=== PATIENT | male | born 1995 | race Hispanic/Latino ===

== ENCOUNTER 2020-11-14 11:19 | Outpatient (CLI) | payer BC ==
--- NOTE | 2020-11-14 12:25 | RAD ---
EXAM: XR Ribs Lt>=2 View STANDARD PROVIDED CLINICAL HISTORY: Slipped on ice and hit left side of chest. Chest pain. COMPARISON: None FINDINGS: Left lung is clear without pneumothorax or pleural effusion. A nondisplaced fractures involving the l ateral left 10th rib. No additional obvious rib fracture is present on this exam. The lower left-sided ribs are not imaged on the oblique view. No other findings. IMPRESSION: Nondisplaced fracture lateral left 10th rib.
== END 2020-11-14 11:20 | disposition home or self-care (01) ==
LOC: BICRAD 11:19
PROVIDERS: ATTEND Family Medicine
DX: R07.9 Chest pain, unspecified (principal); S22.32XA Fracture of one rib, left side, initial encounter for closed fracture

== ENCOUNTER 2024-10-08 10:21 | Outpatient (CLI) | payer BC | END 2024-10-08 10:22 | disposition home or self-care (01) | LOC: SCSRAD 10:21 | PROVIDERS: ATTEND Family Medicine | DX: S39.012A Strain of muscle, fascia and tendon of lower back, initial encounter (principal); M62.838 Other muscle spasm; V87.7XXA Person injured in collision between other specified motor vehicles (traffic), initial encounter | CPT/HCPCS: 72100; 72220 ==